=== PATIENT | female | born 1945 | race Hispanic/Latino ===

== ENCOUNTER → 2019-02-17 | Outpatient (CLI) | payer OTHER, MEDICARE | END | disposition home or self-care (01) | LOC: RAH 11:27 | PROVIDERS: ATTEND Internal Medicine Gastroenterology | DX: R63.4 Abnormal weight loss (principal); R14.0 Abdominal distension (gaseous); R10.9 Unspecified abdominal pain | CPT/HCPCS: 78264; A9541 ==

== ENCOUNTER 2021-10-16 10:01 | Observation (INO) | payer OTHER, MEDICARE ==
[2021-10-14 10:24] LABS: BASOPHILS % (AUTO) 0.4 % (0.0-5.0); EOSINOPHILS % (AUTO) 1.1 % (0.0-8.0); HEMATOCRIT 42.1 % (36-48); LYMPHOCYTES % (AUTO) 19.1 % (21.0-51.0); MEAN CORPUSCULAR HEMOGLOBIN 28.1 pg (27.0-33.0); MEAN CORPUSCULAR HGB CONC 31.4 g/dL (32.0-36.0); MEAN CORPUSCULAR VOLUME 89.6 fL (79-99); MONOCYTES % (AUTO) 8.8 % (3.0-13.0); NEUTROPHILS % (AUTO) 70.3 % (40.0-77.0); PLATELET COUNT (AUTO) 342 K/uL (130-400); RED CELL DISTRIBUTION WIDTH 13.7 % (11.0-15.5); WHITE BLOOD COUNT (AUTO) 7.1 K/uL (4.8-10.8)
[2021-10-14 10:27] LABS: APPEARANCE,URINE CLEAR (CLEAR); BILIRUBIN,URINE NEGATIVE (NEGATIVE); COLOR,URINE YELLOW (YELLOW); GLUCOSE, URINE (UA) NEGATIVE (NEGATIVE); KETONES,URINE NEGATIVE (NEGATIVE); LEUKOCYTE ESTERASE ,URINE NEGATIVE (NEGATIVE); NITRATE,URINE NEGATIVE (NEGATIVE); OCCULT BLOOD,URINE NEGATIVE (NEGATIVE); PROTEIN,URINE NEGATIVE (NEGATIVE); UROBILINOGEN,URINE 0.2 mg/dL (0.2-1.0)
[2021-10-14 10:33] LABS: CREATININE 0.9 mg/dL (0.5-1.5); INR 0.95 (0.85-1.15); POTASSIUM 4.4 mmol/L (3.5-5.1); PROTHROMBIN TIME 10.4 SEC (9.6-11.6)
[2021-10-15 12:27] VITALS: BP 174/78
[~2021-10-16] VITALS: Ht 154.9 cm; Wt 66.0 kg
[2021-10-16] VITALS (24 sets, daily range): BP systolic 96–136; BP diastolic 28–63
[~2021-10-16 10:01] MED LIST: ADAL40KI SQ; ALEN70TA80 PO; AMLO-257 PO; ATOR20TA65 PO; CEFAZOLIN SODIUM 1 GM VIAL IVP ONE; CLOB30CR5 TP; ESCI-8 PO; METF-444 PO; MONT-39 PO; OMEP20TA25 PO; POTA-188 PO; TRAM-355 PO; VALS40TA11 PO
[2021-10-16] MEDS ORDERED: 0.9%NACL 1000ML 1,000 ML IV ONE (10:37)
[2021-10-16] MEDS ORDERED: LIDOCAINE PF 100MG/5ML (2%) SYRINGE 5ML ONE (14:04)
[2021-10-16] MEDS ORDERED: MIDAZOLAM HCL 1 MG/ML 2ML VIAL ONE (14:04)
[2021-10-16] MEDS ORDERED: FENTANYL CITRATE PF 50 MCG/1 ML 2ML VIAL ONE ×3 (14:05→18:13)
[2021-10-16] MEDS ORDERED: PROPOFOL 10 MG/ML 20ML VIAL IV ONE (14:05)
[2021-10-16] MEDS ORDERED: ROCURONIUM 10MG/1ML SYR 10 MG/ML ML ONE ×2 (14:05→14:58)
[2021-10-16] MEDS ORDERED: ONDANSETRON 4MG INJ ONE (14:05)
[2021-10-16] MEDS ORDERED: ROPIVACAINE 0.5% 5MG/ML 30ML IJ ONE (14:09)
[2021-10-16] MEDS ORDERED: TRANEXAMIC ACID 1000MG/10ML ONE ×2 (14:46→17:09)
[2021-10-16] MEDS ORDERED: CEFAZOLIN SODIUM 1 GM VIAL ONE (14:46)
[2021-10-16] MEDS ORDERED: CEFAZOLIN SODIUM 1 GM VIAL IRRIG ONE (15:15)
[2021-10-16] MEDS ORDERED: NEOSTIGMINE 5MG/5ML SYR IV ONE (17:36)
[2021-10-16] MEDS ORDERED: GLYCOPYRROLATE 1 MG/5 ML SYRINGE ONE (17:36)
[2021-10-16] MEDS ORDERED: KETOROLAC 30MG VIAL (30MG/ML) ONE (17:59)
[2021-10-16] MEDS ORDERED: LIDOCAINE HCL-MPF 1% 2ML VIAL IV PRN (18:00)
[2021-10-16] MEDS ORDERED: TEMAZEPAM 15 MG CAPSULE PO PRN (18:00)
[2021-10-16] MEDS ORDERED: POTASSIUM CHLORIDE 20MEQ/100ML 100 ML IV PRN (18:00)
[2021-10-16] MEDS ORDERED: KCL 20 MEQ ERTAB PO PRN (18:00)
[2021-10-16] MEDS ORDERED: DiphenhydrAMINE HCL 50 MG/ML VIAL IVP PRN (18:00)
[2021-10-16] MEDS ORDERED: TRAMADOL HCL 50 MG TABLET PO PRN (18:00)
[2021-10-16] MEDS ORDERED: KETOROLAC 15MG/ML VIAL (15MG/ML) IV PRN (18:00)
[2021-10-16] MEDS ORDERED: ONDANSETRON 4MG INJ IVP PRN (18:00)
[2021-10-16] MEDS ORDERED: FE FUMARATE/FA/MV, MIN COMB#15 1 TAB PO PRN (18:00)
[2021-10-16] MEDS: 0.9%NACL 1000ML 1,000 ML IV SCH (18:00)
[2021-10-16] MEDS: ACETAMINOPHEN 500 MG TABLET PO SCH ×2 (18:00→23:31)
[2021-10-16] MEDS ORDERED: POTASSIUM CHLORIDE 10% ELIXIR 20 MEQ/15 ML UDCUP PO PRN (18:00)
[2021-10-16] MEDS ORDERED: EPHEDRINE SULFATE 50 MG/ML AMPULE ONE (19:10)
[2021-10-16] MEDS: INSULIN HUMULIN R 100 UNIT/ML 3ML SQ SCH (21:00)
[2021-10-16] MEDS ORDERED: PANTOPRAZOLE 40 MG TAB DR PO PRN (21:30)
[2021-10-16] MEDS ORDERED: [UNRECOGNIZED DRUG - REMARK] MISC SCH (22:00)
[2021-10-16] MEDS ORDERED: [UNRECOGNIZED DRUG - REMARK] MISC SCH (22:00)
[2021-10-16] MEDS: CELECOXIB 200 MG CAP PO SCH (23:21)
[2021-10-16] MEDS: FAMOTIDINE 20MG TAB PO SCH (23:21)
[2021-10-16] MEDS: CEFAZOLIN SODIUM 1 GM VIAL IVP SCH (23:22)
[2021-10-16] MEDS: OXYCODONE HCL 5 MG TAB PO PRN (23:31)
[2021-10-17] VITALS (7 sets, daily range): BP systolic 117–134; BP diastolic 49–67
[2021-10-17] MEDS: OXYCODONE HCL 5 MG TAB PO PRN ×2 (03:43→15:54)
[2021-10-17 03:44] LABS: HEMATOCRIT 31.8 % (36-48); MEAN CORPUSCULAR HEMOGLOBIN 28.9 pg (27.0-33.0); MEAN CORPUSCULAR HGB CONC 32.4 g/dL (32.0-36.0); MEAN CORPUSCULAR VOLUME 89.3 fL (79-99); RED BLOOD CELL COUNT(AUTO) 3.56 MIL/uL (4.00-5.50); RED CELL DISTRIBUTION WIDTH 13.8 % (11.0-15.5); WHITE BLOOD COUNT (AUTO) 12.8 K/uL (4.8-10.8)
[2021-10-17] MEDS: 0.9%NACL 1000ML 1,000 ML IV SCH ×2 (03:55→14:00)
[2021-10-17 03:59] LABS: CREATININE 0.7 mg/dL (0.5-1.5); POTASSIUM 3.8 mmol/L (3.5-5.1)
[2021-10-17] MEDS: INSULIN HUMULIN R 100 UNIT/ML 3ML SQ SCH ×4 (06:00→19:36)
[2021-10-17] MEDS: CEFAZOLIN SODIUM 1 GM VIAL IVP SCH (06:10)
[2021-10-17] MEDS: AMLODIPINE 5 MG TAB PO SCH (09:00)
[2021-10-17] MEDS: LOSARTAN 25 MG TABLET PO SCH (09:00)
[2021-10-17] MEDS ORDERED: ADALIMUMAB 40 MG SQ SCH (09:00)
[2021-10-17] MEDS ORDERED: CLOBETASOL PROPIONATE 0.05% CR 60 GM CRM TP ONE (09:00)
[2021-10-17] MEDS ORDERED: CLOBETASOL PROPIONATE 0.05% CR 60 GM CRM TP PRN (09:00)
[2021-10-17] MEDS: CALCIUM CARB 500MG PO PRN ×2 (09:24→22:00)
[2021-10-17] MEDS: METFORMIN HCL 500 MG TABLET PO SCH (09:24)
[2021-10-17] MEDS: POLYETHYLENE GLYCOL 3350 17 GM POWD.PACK PO SCH (09:26)
[2021-10-17] MEDS: CELECOXIB 200 MG CAP PO SCH ×2 (09:27→19:37)
[2021-10-17] MEDS: ASPIRIN 81 MG EC TAB PO SCH ×2 (09:28→19:37)
[2021-10-17] MEDS: ACETAMINOPHEN 500 MG TABLET PO SCH ×3 (09:28→18:00)
[2021-10-17] MEDS: FAMOTIDINE 20MG TAB PO SCH (09:29)
[2021-10-17] MEDS: CITALOPRAM 20 MG TABLET PO SCH (09:29)
[2021-10-17] MEDS: MONTELUKAST SODIUM 10 MG TAB PO SCH (09:29)
[2021-10-17] MEDS: POTASSIUM CHLORIDE 10MEQ SR TAB PO SCH (09:30)
[2021-10-17] MEDS ORDERED: HYDR-4060 PO (14:19)
[2021-10-17] MEDS ORDERED: ATORVASTATIN 20 MG TABLET PO SCH (21:00)
[2021-10-18 00:04] VITALS: BP 117/52
[2021-10-18 04:33] VITALS: BP 106/54
[2021-10-18] MEDS ORDERED: ACETAMINOPHEN 500 MG TABLET PO SCH (05:00)
[2021-10-18] MEDS: INSULIN HUMULIN R 100 UNIT/ML 3ML SQ SCH (06:04)
[2021-10-18 08:00] VITALS: BP 105/50
[2021-10-18] MEDS: OXYCODONE HCL 5 MG TAB PO PRN (08:15)
[2021-10-18] MEDS: POLYETHYLENE GLYCOL 3350 17 GM POWD.PACK PO SCH (08:18)
[2021-10-18] MEDS: CELECOXIB 200 MG CAP PO SCH (08:18)
[2021-10-18] MEDS: ASPIRIN 81 MG EC TAB PO SCH (08:18)
[2021-10-18] MEDS: LOSARTAN 25 MG TABLET PO SCH (09:00)
[2021-10-18] MEDS: AMLODIPINE 5 MG TAB PO SCH (09:00)
[2021-10-18] MEDS: FAMOTIDINE 20MG TAB PO SCH (09:41)
[2021-10-18] MEDS: METFORMIN HCL 500 MG TABLET PO SCH (09:41)
[2021-10-18] MEDS: MONTELUKAST SODIUM 10 MG TAB PO SCH (09:41)
[2021-10-18] MEDS: CITALOPRAM 20 MG TABLET PO SCH (09:42)
[2021-10-18] MEDS: POTASSIUM CHLORIDE 10MEQ SR TAB PO SCH (09:42)
[2021-10-19] MEDS ORDERED: BISACODYL 10 MG SUPP.RECT RC PRN (18:00)
[2021-10-20] MEDS ORDERED: ALENDRONATE SODIUM 35 MG TAB PO SCH (07:00)
== END 2021-10-18 10:30 | disposition home health service (06) ==
LOC: DAH 10:01 → 4AH 10:02 → DAH 10:02 → 4AH 10-17 09:53 → DAHIP 10-17 09:53
PROVIDERS: ADMIT Orthopaedic Surgery; ATTEND Orthopaedic Surgery
DX: M75.101 Unspecified rotator cuff tear or rupture of right shoulder, not specified as traumatic (principal); Z20.822 Contact with and (suspected) exposure to COVID-19; E11.9 Type 2 diabetes mellitus without complications; I10 Essential (primary) hypertension; M06.9 Rheumatoid arthritis, unspecified; E78.00 Pure hypercholesterolemia, unspecified; E78.5 Hyperlipidemia, unspecified; Z90.710 Acquired absence of both cervix and uterus; Z85.038 Personal history of other malignant neoplasm of large intestine; Z85.41 Personal history of malignant neoplasm of cervix uteri; Z79.899 Other long term (current) drug therapy
CPT/HCPCS: 23474; 36415 ×2; 73030; 80048 ×2; 81003; 82948 ×7; 85025; 85027; 85610; 87088; 87635; 87641; 93005; 96374; 96376; 97039; 97116; 97161; 97530 ×2; A4215; A4221; A4222; A4223; A4565; A4600; A4649 ×5; A4663; A6206; C1713; C1776; C9803; G0168; G0378 ×38; J0690 ×4; J1885; J2001; J2250; J2405; J2704; J2710; J2795; J3010 ×3; J3490 ×4; J7030 ×2

== ENCOUNTER 2022-10-18 18:15 | Emergency (ER) | payer OTHER, MEDICARE ==
[~2022-10-18] VITALS: Ht 154.9 cm; Wt 66.2 kg
[~2022-10-18 18:15] MED LIST changes: -CEFAZOLIN SODIUM 1 GM VIAL IVP ONE; +HYDR-4060 PO; +OMEP20TA20 PO; -OMEP20TA25 PO; -TRAM-355 PO
[2022-10-18 19:13] VITALS: BP 125/55
[2022-10-18] MEDS ORDERED: CEPH500B PO (19:17)
== END 2022-10-18 19:30 | disposition home or self-care (01) ==
LOC: EDH 18:15
DX: S81.012A Laceration without foreign body, left knee, initial encounter (principal); I10 Essential (primary) hypertension; E78.00 Pure hypercholesterolemia, unspecified; E11.9 Type 2 diabetes mellitus without complications; Z90.710 Acquired absence of both cervix and uterus; Z79.899 Other long term (current) drug therapy; W18.30XA Fall on same level, unspecified, initial encounter; Y93.89 Activity, other specified; Y92.89 Other specified places as the place of occurrence of the external cause; Y99.8 Other external cause status
CPT/HCPCS: 12004; 73562

== ENCOUNTER → 2024-08-22 | Outpatient (CLI) | payer OTHER, MEDICARE ==
[~2024-08-22] MED LIST changes: +CEPH500B PO
[2024-08-22 16:12] LABS: BASOPHILS # (AUTO) 0.03 K/uL (0.00-0.20); BASOPHILS % (AUTO) 0.3 % (0.0-5.0); EOSINOPHILS # (AUTO) 0.12 K/uL (0.00-0.70); EOSINOPHILS % (AUTO) 1.3 % (0.0-8.0); HEMATOCRIT 35.4 % (36-48); IMMATURE GRANULOCYTE ABSOLUTE 0.14 K/uL (0-1); LYMPHOCYTES # (AUTO) 1.2 K/uL (1.0-4.8); LYMPHOCYTES % (AUTO) 12.6 % (21.0-51.0); MEAN CORPUSCULAR HEMOGLOBIN 27.8 pg (27.0-33.0); MEAN CORPUSCULAR HGB CONC 30.8 g/dL (32.0-36.0); MEAN CORPUSCULAR VOLUME 90.3 fL (79-99); MONOCYTES # (AUTO) 0.9 K/uL (0.1-1.0); MONOCYTES % (AUTO) 9.6 % (3.0-13.0); NEUTROPHILS % (AUTO) 74.7 % (40.0-77.0); PLATELET COUNT (AUTO) 415 K/uL (130-400); RED BLOOD CELL COUNT(AUTO) 3.92 MIL/uL (4.00-5.50); RED CELL DISTRIBUTION WIDTH 14.7 % (11.0-15.5); WHITE BLOOD COUNT (AUTO) 9.4 K/uL (4.8-10.8)
[2024-08-22 17:01] LABS: POTASSIUM 3.8 mmol/L (3.5-5.1)
== END | disposition home or self-care (01) ==
LOC: LAB 15:16
PROVIDERS: ATTEND Internal Medicine Cardiovascular Disease
DX: I10 Essential (primary) hypertension (principal); R55 Syncope and collapse
CPT/HCPCS: 36415; 80048; 85025